=== PATIENT | female | born 1965 | race Caucasian/White ===

== ENCOUNTER → 2016-10-06 | Day surgery (SDC) | payer OTHER ==
[~2016-10-06] VITALS: Ht 165.1 cm; Wt 154.7 kg
[2016-10-06 10:41] LABS: HCT 40.4 % (37.0-47.0); HGB 13.8 g/dl (12.5-16.0); MCH 30.9 pg (25.0-31.0); MCHC 34.2 g/dL (32.0-36.0); MCV 90.4 fL (78.0-100.0); MPV 9.4 fL (6.0-9.5); RBC 4.47 M/uL (4.20-5.40)
[2016-10-06 10:54] LABS: INR 0.86 (0.9-1.2); PROTHROMBIN TIME 11.4 SECONDS (11.7-14.0); PTT 25.8 SECONDS (23.2-31.4)
[2016-10-06 10:55] LABS: ALBUMIN 3.6 g/dL (3.5-5.0); BILIRUBIN - TOTAL 0.2 mg/dL (0.1-1.0); CREATININE 0.6 mg/dL (0.5-1.0); GLOBULIN (CALCULATION) 3.4 g/dL (2.2-4.2); POTASSIUM 4.7 mmol/L (3.5-5.1)
[2016-10-06 11:14] LABS: TSH (THYROID STIM HORMONE) 1.74 uIU/mL (0.270-4.200); VITAMIN D (25-OH) 11.16 ng/mL (20.0-)
[2016-10-06 11:17] LABS: FOLIC ACID (SERUM) 6.8 ng/mL (4.4-31.0)
== END | disposition home or self-care (01) ==
LOC: FAS 08:45
PROVIDERS: Surgery
DX: K29.50 Unspecified chronic gastritis without bleeding (principal); K21.9 Gastro-esophageal reflux disease without esophagitis; F41.9 Anxiety disorder, unspecified; I10 Essential (primary) hypertension; E66.01 Morbid (severe) obesity due to excess calories; E78.5 Hyperlipidemia, unspecified; G47.33 Obstructive sleep apnea (adult) (pediatric); M19.90 Unspecified osteoarthritis, unspecified site; F17.200 Nicotine dependence, unspecified, uncomplicated; Z79.01 Long term (current) use of anticoagulants; Z79.899 Other long term (current) drug therapy; Z90.49 Acquired absence of other specified parts of digestive tract; Z99.81 Dependence on supplemental oxygen; Z98.51 Tubal ligation status; Z68.43 Body mass index [BMI] 50.0-59.9, adult
CPT/HCPCS: 36415; 80053; 80061; 82306; 82607; 82728; 82746; 83036; 83540; 83550; 84425; 84443; 85610; 85730; 88305; G0480; J2704